=== PATIENT | male | born 1935 | race Asian ===

== ENCOUNTER 2021-04-01 11:24 | Inpatient (IN) | payer MEDICARE, OTHER, SELFPAY ==
[~2021-04-01] VITALS: Ht 167.6 cm; Wt 71.7 kg
[2021-04-01] MEDS: DEXT 5% /NACL 0.9% 1,000 ML IV SCH ×2 (01:51→16:42)
[~2021-04-01 11:24] MED LIST: ACET-2619 GT; ASCO500T95 GT; ATEN25TA7 GT; CALC-46 PO; DOCU-299 GT; FAMO-90 GT; FURO-572 GT; KEP500L GT; LACT1CAP94 GT; LEVO750T2 GT; LISI5TAB18 GT; POTA20SO16 GT; SCOP1PAT TD; SENN-46 PO; VANC1PDS14 IV; [UNRECOGNIZED DRUG - CODE] SUBQ
--- NOTE | 2021-04-01 11:25 | NUR ---
Patient BIBA ALS, transferred to bed 10. RN evaluating the patient at bedside.
--- NOTE | 2021-04-01 11:26 | NUR ---
85 Y/O MALE BIBA TRACHEA TO [facility] FROM [facility] FOR DESAT OF SPO2 92% ON 5L NC. GCS PER EMT UNKNOWN BASELINE FROM FACILITY. GCS 5 NOW. EMT PLACED PT ON BVM SP02 AT 98% WITH 5L. ON ARRIVAL RT AT BEDSIDE PLACED PT ON 5L TRACHEA 30% O2 VIA MECHANICAL VENTILATION. PT HAS GTUBE, DIAPERED. PMH: HTN, HLD, CHRONIC RESPIRATORY FAILURE, BPH. SEE OTHER NKA
[2021-04-01 11:30] VITALS: BP 64/34
--- NOTE | 2021-04-01 11:39 | NUR ---
Dr. Wallace is evaluating the patient at bedside.
--- NOTE | 2021-04-01 11:40 | NUR ---
PT SPO2 87% WITH 5L NC DESAT, RT AT BEDSIDE. O2 60% ON 12L TRACH.
[2021-04-01] MEDS ORDERED: AZITHROMYCIN 500 MG in DEXTROSE 5% 250 ML IV ONE (11:45)
[2021-04-01] MEDS ORDERED: NACL 0.9% 2,500 ML IV ONE (11:45)
[2021-04-01] MEDS ORDERED: CEFEPIME 1,000 MG in DEXTROSE 5% 50 ML IV ONE (11:45)
--- NOTE | 2021-04-01 11:47 | NUR ---
Note undone in EDM - 04/01/21 at 1212 by [email or web address] 85 Y/O MALE BIBA TRACHEA TO [facility] FROM [facility] FOR DESAT OF SPO2 92% ON 5L NC. GCS PER EMT UNKNOWN BASELINE FROM FACILITY. GCS 5 NOW. EMT PLACED PT ON BVM SP02 AT 98% WITH 5L. ON ARRIVAL RT AT BEDSIDE PLACED PT ON 5L TRACHEA 30% O2 VIA MECHANICAL VENTILATION. PT HAS GTUBE, DIAPERED. PMH: HTN, HLD, CHRONIC RESPIRATORY FAILURE, BPH. SEE OTHER NKA
--- NOTE | 2021-04-01 11:55 | NUR ---
LAB AT BEDSIDE FOR BLOOD DRAW
[2021-04-01] MEDS ORDERED: ZINC-31 GT (12:08)
[2021-04-01] MEDS ORDERED: MULT-1944 PO (12:08)
[2021-04-01] MEDS ORDERED: ASCO500T95 GT (12:08)
[2021-04-01] MEDS ORDERED: MERO500V13 IV (12:08)
[2021-04-01] MEDS ORDERED: OMEP20EC11 GT (12:08)
[2021-04-01] MEDS ORDERED: MULT-2253 GT (12:08)
--- NOTE | 2021-04-01 12:10 | NUR ---
instructional technologist at pt bedside.
[2021-04-01] MEDS ORDERED: CEFEPIME 1,000 MG VIAL ONE (12:15)
[2021-04-01 12:20] LABS: HEMATOCRIT 35.3 % (36-52); HEMOGLOBIN 10.8 g/dL (12.0-18.0); MEAN CORPUSCULAR HEMOGLOBIN 25 pg (27-31); MEAN CORPUSCULAR HGB CONC 30 g/dL (33-37); MEAN CORPUSCULAR VOLUME 82.7 fL (80-94); PLATELET COUNT (AUTO) 168 K/uL (140-450); RED BLOOD CELL COUNT(AUTO) 4.27 MIL/uL (4.20-6.10); RED CELL DISTRIBUTION WIDTH 16.5 % (11.6-13.7); WHITE BLOOD COUNT (AUTO) 24.3 K/uL (4.8-10.8)
[2021-04-01 12:33] LABS: PROTHROMBIN TIME 11.2 secs (10.8-13.4)
[2021-04-01] MEDS ORDERED: AZITHROMYCIN 500 MG INJ VIAL IV ONE (12:37)
[2021-04-01 12:40] LABS: MONOCYTES % (MANUAL) 5 % (5-12)
[2021-04-01 12:41] LABS: LYMPHOCYTES % (MANUAL) 7 % (20-46)
[2021-04-01 12:44] LABS: ALBUMIN 2.5 g/dL (3.4-5.0); ANION GAP 12.6 (8-16); ASPARTATE AMINOTRANSFERASE 36 U/L (15-37); CARBON DIOXIDE 32.4 mmol/L (21-32); CHLORIDE 116 mmol/L (98-107); CREATININE 3.5 mg/dL (0.6-1.3); GLUCOSE 205 mg/dL (74-106); LIPASE 562 U/L (73-393); TOTAL BILIRUBIN 0.3 mg/dL (0.0-1.0)
[2021-04-01 12:47] LABS: SODIUM SERUM 157 mmol/L (136-145); UREA NITROGEN, BLOOD 120 mg/dL (7-18)
[2021-04-01 13:05] LABS: APPEARANCE,URINE CLEAR (CLEAR); BILIRUBIN,URINE NEGATIVE (NEGATIVE); BLOOD, URINE TRACE-I (NEGATIVE); COLOR,URINE YELLOW (YELLOW); LEUKOCYTE ESTERASE ,URINE 1+ (NEGATIVE); NITRITE, URINE NEGATIVE (NEGATIVE); UGLUCOSE NEGATIVE (NEGATIVE)
[2021-04-01] MEDS ORDERED: LACTATED RINGERS 1,000 ML IV SCH (13:15)
[2021-04-01] MEDS ORDERED: LACTATED RINGERS 1,000 ML IV ONE (13:30)
[2021-04-01 13:32] LABS: RBC,URINE 0-5 /HPF (0-5); WBC,URINE 0-5 /HPF (0-5)
--- NOTE | 2021-04-01 13:38 | NUR ---
ABG WAS ATTEMPTED AT THIS TIME UNABLE TO OBTAIN DUE TO VERY LOW BP 68/37 WILL TRY AGAIN LATER
--- NOTE | 2021-04-01 13:41 | NUR ---
RT AT BEDSIDE FOR ABG
--- NOTE | 2021-04-01 14:13 | NUR ---
Spoke with Dr. Restrepo, per family only comfort measures. Pt is DNR.
--- NOTE | 2021-04-01 14:37 | NUR ---
Pt resting, visible equal rise and fall of chest, VSS, will continue to monitor.
--- NOTE | 2021-04-01 15:05 | NUR ---
RECEIVED REPORT FROM ER. PATIENT CC OF HYPOXIA, DX: SEPTIC SHOCK, RENAL FAILURE. PATIENT IS ON COMFORT MEASURES W/ DNR IN PLACE. LR BOLUS GIVEN FOR DECREASED BP. PENDING PATIENT TO TRANSFER TO UNIT.
--- NOTE | 2021-04-01 15:10 | NUR ---
Gave report to TIFFANY Garcia for pending admission. ETA 15 minutes. RT paged.
--- NOTE | 2021-04-01 15:29 | NUR ---
Patient will be admitted to care of Dr. Leonel Restrepo. Admited to tele. Will go to room 110-A. Belongings list completed. Report to TIFFANY Garcia.
[2021-04-01 15:30] VITALS: BP 87/51
--- NOTE | 2021-04-01 15:30 | NUR ---
PATIENT ARRIVED ON UNIT. RT AT BEDSIDE AND ASSISTED TRACH O2. ASSISTED SOFTWARE DESIGN MANAGER W/ SPONGE BATH AND CHANGED INTO CLEAN GOWN. PATIENT SMALL SMEAR BM, BLACK IN COLOR. SAFETY MEASURES IN PLACE. WILL CONTINUE TO MONITOR.
[2021-04-01] MEDS ORDERED: guaiFENesin DM 200/20 MG-10 ML 10 ML UDC PO PRN (16:00)
[2021-04-01] MEDS ORDERED: POTASSIUM CHLORIDE 40 MEQ, LIDOCAINE MPF 1% 25 MG in NACL 0.9% 250 ML IV PRN (16:00)
[2021-04-01] MEDS ORDERED: DOCUSATE SODIUM 100 MG GELCAP PO PRN (16:00)
[2021-04-01] MEDS ORDERED: ZOLPIDEM 5 MG TAB PO PRN (16:00)
[2021-04-01] MEDS ORDERED: ACETAMINOPHEN 325 MG TAB PO PRN (16:00)
[2021-04-01] MEDS ORDERED: ONDANSETRON 4 MG/2 ML VIAL IM/IVP PRN (16:00)
[2021-04-01] MEDS ORDERED: HYDROcodone/APAP 7.5/325 MG 1 TAB PO PRN (16:00)
--- NOTE | 2021-04-01 16:00 | NUR ---
ADMINISTERED PRESCRIBED MEDS PER MD ORDER. SUCTION PERFORMED. PATIENT TOLERATING WELL. WILL CONTINUE TO MONITOR.
[2021-04-01 16:50] LABS: CHOL/HDL RATIO 4.6 (1-4.5); FREE T4 (FREE THYROXINE) 0.86 ng/dL (0.76-1.46); MAGNESIUM 3.1 mg/dL (1.8-2.4); PHOSPHORUS 3.2 mg/dL (2.5-4.9); THYROID STIMULATING HORMONE 1.91 uIU/mL (0.34-3.74)
--- NOTE | 2021-04-01 17:00 | NUR ---
ADVSD DR JIN OF LACTIC ACID LEVEL. NO NEW ORDERS RECEIVED.
[2021-04-01] MEDS ORDERED: ALBUTEROL SULFATE/IPRATROPIU 3 ML SOL IH PRN (19:00)
[2021-04-01] MEDS: ALBUTEROL SULFATE/IPRATROPIU 3 ML SOL IH SCH (19:21)
--- NOTE | 2021-04-01 19:50 | NUR ---
ENDORSED PATIENT TO NIGHTSHIFT NURSE FOR CONTINUITY OF CARE
--- NOTE | 2021-04-01 19:50 | NUR ---
RECEIVED PT LETHARGIC , TRACH TO O2 AT 15LPM - ON HOOK TO O2 SAT MONITORING - O2 SAT WNL . ON TELE MONITOR . , BULGE IV - WILL RE INDERT - NEW IV ACCESS , LOW ERIC SCALE . WILL VERIFY TO DR. JIN ABOUT NGT ORDER - PT . IS W/ G TUBE . W/ FC DRAINING CLEAR U.O . SAFETY MEASURES IN PLACE . POC DISCUSSED BUT POOR UNDERSTANDING DUE TO MENTAL STATUS . WILL CONT. TO MONITOR .
[2021-04-01 20:00] VITALS: BP 90/60
--- NOTE | 2021-04-01 21:30 | NUR ---
START FEEDING TUBE - ORDERED BY DR. JIN . WILL ADVENCE THE REG PER TOLERANCE AND PER ORDERED .
--- NOTE | 2021-04-01 22:00 | NUR ---
TRIED TO INSERT NEW IV ACCESS - FAILED . - WILL ASK TO ICU FOR HELP .
[2021-04-02] VITALS: BP 102/60
--- NOTE | 2021-04-02 | NUR ---
O2 SAT WNL , ICU NURSE TRIED TO INSERT IV ACCESS - FAILED . ON TELE MONITOR . WILL CONT. TO MONITOR . WILL ASK MOI TO HELP ME - FOR IV ACCESS RE INSERTION .
[2021-04-02] MEDS: ALBUTEROL SULFATE/IPRATROPIU 3 ML SOL IH SCH ×4 (01:00→20:10)
--- NOTE | 2021-04-02 01:30 | NUR ---
MOI INSERT NEW IV ACCESS AT LEFT AC - PROCEDURES TOETARED WELL BY PT . MIN . BLEEDING . WILL CONT. THE IVF . WILL CONT. TO MONITOR
--- NOTE | 2021-04-02 02:00 | NUR ---
O2 SAT WNL NO S/SX OF ACUTE DISTRESS NOTED . ON TELE MONITOR .
[2021-04-02 04:00] VITALS: BP 113/62
--- NOTE | 2021-04-02 04:00 | NUR ---
O2 SAT WNL . NO S/X OF ACUTE DISTRESS NOTED . WILL CONT. TO MONITOR . BP WNL . Addendum: 04/02/21 at 0839 by Senia Mcgovern RN TUBE FEEDING TOLERATING WELL
--- NOTE | 2021-04-02 06:00 | NUR ---
IV SITE BULGED - WILL INFORM DR. JIN - PT HARD STICK
[2021-04-02 06:07] LABS: T4 (THYROXINE) 4.8 ug/dL (4.5-12.0)
[2021-04-02 06:09] LABS: BASOPHILS # (AUTO) 0.1 K/uL (0.00-0.22); BASOPHILS % (AUTO) 0.3 % (0.0-2.0); EOSINOPHILS # (AUTO) 0.1 K/uL (0-0.4); EOSINOPHILS % (AUTO) 0.7 % (0.0-4.0); HEMATOCRIT 32.1 % (36-52); HEMOGLOBIN 9.9 g/dL (12.0-18.0); LYMPHOCYTES # (AUTO) 1.4 K/uL (2.0-11.5); LYMPHOCYTES % (AUTO) 6.6 % (20.5-51.1); MEAN CORPUSCULAR HEMOGLOBIN 25 pg (27-31); MEAN CORPUSCULAR HGB CONC 31 g/dL (33-37); MONOCYTES # (AUTO) 0.9 K/uL (0.8-1.0); MONOCYTES % (AUTO) 4.3 % (1.7-9.3); NEUTROPHILS # (AUTO) 18.7 K/uL (1.8-7.7); NEUTROPHILS % (AUTO) 88.1 % (42.2-75.2); PLATELET COUNT (AUTO) 143 K/uL (140-450); RED BLOOD CELL COUNT(AUTO) 3.92 MIL/uL (4.20-6.10); RED CELL DISTRIBUTION WIDTH 15.8 % (11.6-13.7); WHITE BLOOD COUNT (AUTO) 21.2 K/uL (4.8-10.8)
[2021-04-02 06:11] LABS: ANION GAP 10.5 (8-16); CARBON DIOXIDE 30.8 mmol/L (21-32); CHLORIDE 119 mmol/L (98-107); CREATININE 2.2 mg/dL (0.6-1.3); GLUCOSE 191 mg/dL (74-106); POTASSIUM 3.3 mmol/L (3.5-5.1)
[2021-04-02 06:17] LABS: SODIUM SERUM 157 mmol/L (136-145); UREA NITROGEN, BLOOD 113 mg/dL (7-18)
[2021-04-02] MEDS: DEXT 5% /NACL 0.9% 1,000 ML IV SCH ×2 (06:50→17:21)
--- NOTE | 2021-04-02 07:35 | NUR ---
RECEIVED PATIENT FROM NIGHT NURSE. PATIENT IN BED SLEEPING. RESP EVEN AND UNLABORED ON TRACH TO 15L OXYGEN, O2SAT 95%. NO NOTED DISTRESS AT THIS TIME. NO IV ACCESS AT THIS TIME. WILL ASK ER NURSE FOR ASSIST. DROPLET PRECAUTION IN PLACE, PCR PENDING. HOB ELEVATED. SAFETY MEASURES IN PLACE. WILL CONTINUE TO MONITOR.
--- NOTE | 2021-04-02 07:35 | NUR ---
ENDORSED - PT - STABLE .
[2021-04-02 08:00] VITALS: BP 113/73
--- NOTE | 2021-04-02 08:37 | NUR ---
PER DR. DAVIN MUNGUIA EJ - C/O ER NURSE .
--- NOTE | 2021-04-02 08:56 | NUR ---
RECEIVED REFERRAL FOR TUBE FEEDING. PATIENT HAS BEEN SCREENED AND CATEGORIZED HIGH NUTRITION RISK. PATIENT WILL BE SEEN WITHIN 1-2 DAYS OF ADMISSION. 04/02/21-04/03/[address]
[2021-04-02] MEDS: PANTOPRAZOLE 40 MG INJ VIAL IVP SCH (09:00)
--- NOTE | 2021-04-02 10:04 | NUR ---
PATIENT IN BED SLEEPING, CHEST NOTED RISING. RESP EVEN AND UNLABORED ON TRACH TO 12L OXY, O2SAT 95%. LUNGS DIMINISHED. NO NOTED DISTRESS AT THIS TIME. PATIENT RESPONDING DURING TRACH SUCTION WITH EYE OPENING SPONTANEOUS. GTUBE IN PLACE WITH GLUCERNA 1.2, RESIDUAL CHECK <10ML, INCREASED FEEDING TO 40ML/HR ORDERED FOR GOAL. MORNING ROUTINE MEDICATION GIVEN. NO IV ACCESS AT THIS TIME. ER NURSE CALLED BUT NO NURSE AVAILABLE FOR EJ ACCESS INSERTION. PROTONIX IVP NOT GIVEN. SKIN COOL TO TOUCH. EDEMA NONPITTING NOTED TO UPPER BILATERAL EXTREMITIES AND LOWER LEFT FOOT. GEORGE NOTED IN PLACE DRAINING YELLOW URINE. DR JIN MADE AWARE OF POTASSIUM 3.3, NO NEW ORDERS GIVEN. PLAN OF CARE WILL BE COMFORT CARE. WILL AWAIT ORDERS. HOB ELEVATED, CALL LIGHT WITHIN REACH. WILL CONTINUE TO MONITOR.
--- NOTE | 2021-04-02 10:53 | NUR ---
DC PLANNIN YRS OLD FEMALE PATIENT WAS ADMITTED FROM [facility] WITH A DX OF SEPTIC SHOCK, PNEUMONIA. PT HAS A HX OF CVA ,CHRONIC RESP FAILURE ON TRACH AND PEG TUBE,AND SUBARACHNOID BLEED, ANEURYSM. PT IS DNR. CARDIO, PULMO AND NEPHRO CONSULTED CONDITION WORSEN , DR JIN SPOKE WITH FAMILY AND DECIDED PT TO BE ON MORPHINE DRIP. CM TO FOLLOW Addendum: 04/02/21 at 1113 by Yolie High RN DC PLANNING: FELIPE GARCIA [phone] SPOKE WITH ROBINSON CAMP DISCUSSED PT'S CONDITION AND UPDATED CLINICALS. PER ROBINSON IF PT IS ON MORPHINE DRIP [facility] WILL NOT TAKE PATIENT AND TO CONTINUE THE CARE., AND IF FAMILY AGREED WITH IN PATIENT HOSPICE JUST TO NOTIFY THEM. CM TO FOLLOW Addendum: 04/03/21 at 1447 by Yolie High RN DC PLANNING: FELIPE GARCIA SPOKE WITH CONRADO BOWERS NOTIFIED HER PT IS STILL IN HOUSE WITH MORPHINE DRIP. PT FAMILY REFUSED TO GO BACK TO [facility] WITH HOSPICE. PER ROBINSON STATED PT CAN BE GIP HOSPICE AND ONCE IT'S SIGNED WITH HOSPICE PERRY WON'T BE RESPONSIBLE. DISCUSSED WITH DR JIN AND FAXED THE IN PATIENT HOSPICE ORDER TO [facility] AND [facility]. CM TO FOLLOW Addendum: 04/03/21 at 1610 by Yolie High RN DC PLANNING: RECEIVED A CALL FROM [facility] SPOKE WITH FITZ STATED PT'S SON REFUSED TO SIGN THE IN PATIENT HOSPICE. CALLED [facility] ON HOLD FOR 1 HR UNABLE TO LEAVE MESSAGE. PT IS CONTINUE ON MORPHINE DRIP . CM TO FOLLOW
--- NOTE | 2021-04-02 10:59 | NUR ---
SPOKE TO DAUGHTER IRIS AND CONFIRMED PLAN OF CARE FOR PATIENT. PATIENT WILL START ON MORPHINE DRIP FOR COMFORT CARE. DAUGHTER VERBALIZED UNDERSTANDING. IV ACCESS INSERTED TO LEFT MIDDLE FINGER BY CHARGE NURSE. WILL CONTINUE TO MONITOR.
--- NOTE | 2021-04-02 11:44 | NUR ---
RECEIVED ORDER FROM DR JIN TO DISCONTINUE TUBE FEEDING AND DECREASE IVF RATE TO 60ML/HR. ORDERS CARRIED OUT.
[2021-04-02 12:00] VITALS: BP 94/62
--- NOTE | 2021-04-02 12:06 | NUR ---
SOCIAL WORK NOTE: Patient's Orientation Unable To Assess Information Provided By YANA Lugo [facility] [place] SW WAS UNABLE TO MEET PATIENT AT BEDSIDE. SW COMPLETED ASSESSMENT WITH PATIENT'S Roller Die Cutting Machine Operator, Realtionship and Phone Number DAVID NASH [phone] Healthcare Power of Wax Pourer No Does Patient Have a POLST No Identifying Problems No Social Work Triggers Is A Social Work Consult Needed No Mandate Report Filed No Explanation Of Identifying Problems PATIENT IS AM 85-YEAR-OLD MALE ADMITTED FOR SEPTIC SHOCK AND PNEUMONIA. PATIENT HAS PMHX OF CVA, CHRONIC RESPIRTORY FAILURE. [facility] - [phone] Pre-Admission Level Of Functioning Status Total Care Level Of Functioning Comment PATIENT IS BED BOUND. Prior Resources/Services Used In Last 12 Months No Prior Resources Used Prior DME No Prior DME Used Dialysis Comments N/A Living Situation Lives With Family House Patient Had Caregiver No Home Support No Caregiver Issues Financial Issues No Known Financial Issue Referral To The Financial Counselor Needed No Factors/Needs No D/C Needs Identified Pt/Rep Participated In Discharge Plan Yes Patient/Family Agress With Discharge Plan Yes Discharge Plan Comments TENTATIVE DISCHARGE PLAN IS FOR PATIENT TO RETURN [place] [facility] Plan Status Initiated
[2021-04-02] MEDS: MORPHINE SULFATE 50 MG in NACL 0.9% 45 ML IV PRN ×2 (12:50→21:10)
[2021-04-02] MEDS ORDERED: AZITHROMYCIN 500 MG in DEXTROSE 5% 250 ML IV SCH (13:00)
--- NOTE | 2021-04-02 13:06 | NUR ---
MORPHINE DRIP STARTED PER PROTOCOL. WILL CONTINUE TO FREQUENT MONITOR. Addendum: 04/02/21 at 1606 by Seb Ruano RN WOUND CARE PROVIDED. PATIENT OPEN EYES SPONTANEOUS. TOLERATED WELL. NO NOTED DISTRESS.
--- NOTE | 2021-04-02 15:03 | NUR ---
[facility] SERVICES NO LONGER NEEDED, PLEASE CONTACT RD IF THERE ARE ANY CHANGES IN STATUS
[2021-04-02 16:00] VITALS: BP 113/56
--- NOTE | 2021-04-02 16:05 | NUR ---
PATIENT IN BED SLEEPING, CHEST NOTED RISING. RESP EVEN AND UNLABORED ON TRACH TO 15L OXY, O2SAT 97%. NO NOTED DISTRESS. CONTINUE WITH MORPHINE DRIP. WILL CONTINUE TO MONITOR.
[2021-04-02] MEDS ORDERED: DEXT 5% / NACL 0.45% 1,000 ML IV SCH (16:20)
[2021-04-02] MEDS ORDERED: LEVOFLOXACIN 500 MG/D5W PREMIX 100 ML IV SCH (16:20)
--- NOTE | 2021-04-02 18:47 | NUR ---
PATIENT IN BED SLEEPING, AWAKEN TO STIMULI. RESP EVEN AND UNLABORED ON TRACH TO 15L OXY. NO NOTED DISTRESS. MORPHINE DRIP PROTOCOL IN PLACE. WILL CONTINUE TO MONITOR.
--- NOTE | 2021-04-02 19:19 | NUR ---
ENDORSED PATIENT TO NIGHT NURSE. PATIENT IN STABLE CONDITION.
[2021-04-02 20:00] VITALS: BP 94/52
--- NOTE | 2021-04-02 20:00 | NUR ---
PATIENT ASLEEP AT THIS TIME. SYMMETRICAL CHEST RISE AND FALL NOTED. SAFETY MEASURES IN PLACED. SATING 96% ON TRACH TO TBAR 12L O2.
--- NOTE | 2021-04-02 20:30 | NUR ---
RECEIVED BEDSIDE REPORT FROM DAY RN EARLIER REGARDING THE PT FOR CONTINUITY OF CARE. PATIENT IS OBTUNDED, RESPOND SOMETIMES TO LIGHT STIMULI AND TRIES TO OPEN HIS EYES. PT IS ON COMFORT MEASURES. ON MORPHINE DRIP @ 3ML/HR.SBP ON THE LOW 90'S, HR-77, AFEBRILE, SATING 96% ON TRACH TO T BAR 12L O2. SINUS RHYTHM ON MONKEY TRAINER, HR-72. HOB ELEVATED. SIDE RAILS UP X2, BED IN LOW POSITION AND BED ALARM ON.
--- NOTE | 2021-04-02 21:30 | NUR ---
SPOKE WITH THE PATIENT FAMILY EARLIER AND ASKED IF THEY CAN COME TO VISIT THE PATIENT AT THE BEDSIDE. COLLEGE ATHLETE TONY AND OFFICE MACHINE INSPECTOR CHERIE BOTH MADE AWARE AND OK'D IT. PER PATIENT FAMILY THEY'LL BE HERE BETWEEN 10PM TO 11PM.
--- NOTE | 2021-04-02 22:45 | NUR ---
Patient family at the bedside. Will continue to observe patient.
[2021-04-03] VITALS: BP 75/46
--- NOTE | 2021-04-03 | NUR ---
PT BLOOD PRESSURE WENT DOWN TO 75/46, HR-73, AFEBRILE, SATING 96% ON THE SAME TRACH TO T BAR SETTING. SR ON LENS GRINDING MACHINE OPERATOR, HR-73. WILL CONTINUE TO OBSERVE THE PT.
[2021-04-03] MEDS: ALBUTEROL SULFATE/IPRATROPIU 3 ML SOL IH SCH ×4 (01:06→19:03)
--- NOTE | 2021-04-03 02:00 | NUR ---
PT BPM 84/42, HR-102, SATING 98% ON TRACH TO TBAR SETTING. WILL CONTINUE COMFORT MEASURE ORDERED.
[2021-04-03 04:00] VITALS: BP 101/54
--- NOTE | 2021-04-03 04:10 | NUR ---
PATIENT VSS, AFEBRILE, SATING 94% ON 12L O2, TRACH TO T BAR. COMFORT CARE IN PLACED ORDERED. WILL CONTINUE TO OBSERVE.
[2021-04-03 06:35] LABS: BASOPHILS # (AUTO) 0.1 K/uL (0.00-0.22); BASOPHILS % (AUTO) 0.4 % (0.0-2.0); EOSINOPHILS # (AUTO) 0.3 K/uL (0-0.4); EOSINOPHILS % (AUTO) 1.3 % (0.0-4.0); HEMATOCRIT 34.2 % (36-52); HEMOGLOBIN 10.4 g/dL (12.0-18.0); LYMPHOCYTES % (AUTO) 10.3 % (20.5-51.1); MEAN CORPUSCULAR HEMOGLOBIN 26 pg (27-31); MEAN CORPUSCULAR HGB CONC 31 g/dL (33-37); MEAN CORPUSCULAR VOLUME 83.8 fL (80-94); MONOCYTES # (AUTO) 1.5 K/uL (0.8-1.0); MONOCYTES % (AUTO) 7.4 % (1.7-9.3); NEUTROPHILS # (AUTO) 15.8 K/uL (1.8-7.7); NEUTROPHILS % (AUTO) 80.6 % (42.2-75.2); PLATELET COUNT (AUTO) 150 K/uL (140-450); RED BLOOD CELL COUNT(AUTO) 4.08 MIL/uL (4.20-6.10); RED CELL DISTRIBUTION WIDTH 15.9 % (11.6-13.7); WHITE BLOOD COUNT (AUTO) 19.6 K/uL (4.8-10.8)
--- NOTE | 2021-04-03 06:51 | NUR ---
PATIENT STILL ON CONTINUOUS COMFORT MEASURES ORDERED. SATING 95% ON 12L TRACH TO T BAR. SBP ON HIGH 80'S. PATIENT ON MORPHINE DRIP ORDERED. WILL ENDORSE THE PATIENT TO THE ONCOMING RN FOR CONTINUITY OF CARE.
[2021-04-03 07:03] LABS: ANION GAP 11.9 (8-16); CARBON DIOXIDE 30.2 mmol/L (21-32); CHLORIDE 122 mmol/L (98-107); CREATININE 1.5 mg/dL (0.6-1.3); GLUCOSE 113 mg/dL (74-106)
--- NOTE | 2021-04-03 07:36 | NUR ---
PT RECEIVED FROM GLOVE PRINTER RN. PT RESTING IN BED EYES CLOSED NO S/S OF DISTRESS. IV IS DRY CLEAN AND INTACT. CALL LIGHT IS WITHIN REACH ALL SAFETY MEASURES ARE IN PLACE.
--- NOTE | 2021-04-03 07:37 | NUR ---
ENDORSED PATIENT TO DAY TIFFANY RODNEY FOR CONTINUITY OF CARE. SIGNING OFF.
[2021-04-03 08:00] VITALS: BP 84/55
[2021-04-03 08:23] LABS: POTASSIUM 5.1 mmol/L (3.5-5.1); SODIUM SERUM 159 mmol/L (136-145); UREA NITROGEN, BLOOD 99 mg/dL (7-18)
[2021-04-03] MEDS: PANTOPRAZOLE 40 MG INJ VIAL IVP SCH (09:00)
--- NOTE | 2021-04-03 09:26 | NUR ---
PATIENT STILL ON CONTINUOUS COMFORT MEASURES ORDERED. SATING 88% ON 12L TRACH TO T BAR. SBP IN THE 80'S. PATIENT ON MORPHINE DRIP ORDERED.
[2021-04-03] MEDS: DEXT 5% /NACL 0.9% 1,000 ML IV SCH (10:01)
--- NOTE | 2021-04-03 10:33 | NUR ---
PT TAKEN OFF TELE PER MD ORDERS. PT REPOSITIONED. AND KEPT DRY. NO S/S OF DISTRESS.
--- NOTE | 2021-04-03 11:36 | NUR ---
MORPHINE DROP 15 ML, PHARMACY AWARE 92% 02 ON 12L TRACH TO T BAR. ON CONTINUOUS COMFORT MEASURES ORDERED. SBP ON LOW 80'S. PATIENT ON MORPHINE DRIP ORDERED. ALL SAFETY MEASURES ARE IN PLACE.
--- NOTE | 2021-04-03 12:29 | NUR ---
PT REPOSITIONED, KEPT CLEAN DRY AND COMFORTABLE.
--- NOTE | 2021-04-03 13:30 | NUR ---
PT ASSESSED EVERY 15 MIN PER PROTOCOL. NO S/S OF DISTRESS AT THIS TIME. MORPHINE DRIP CONTINUES 90% O2
--- NOTE | 2021-04-03 13:32 | NUR ---
BP 77/42 SATING 99% ON 12L TRACH TO T BAR. SBP ON HIGH 80'S. PATIENT ON MORPHINE DRIP ORDERED.
--- NOTE | 2021-04-03 15:46 | NUR ---
PT IN BED RESTING COMFORTABLY EYES CLOSED. AROUSES TO PAINFUL STIMULUS. NO S/S OF DISTRESS AT THIS TIME.
[2021-04-03] MEDS: MORPHINE SULFATE 50 MG in NACL 0.9% 45 ML IV PRN (15:54)
--- NOTE | 2021-04-03 16:00 | NUR ---
MORPHINE DRIP CHANGED. DOUBLE VERIFICATION DONE AT BEDSIDE. PT IS RESTING COMFORTABLY NO S/S OF DISTRESS. VITAL SIGNS TAKEN, 76/44 90% 81P. PATIENT AROUSES TO PAIN.
--- NOTE | 2021-04-03 16:09 | NUR ---
PT REASSESSED BP89/45 O2% 99, PULSE 73RT AT BEDSIDE.
[2021-04-03 16:20] VITALS: BP 89/45
--- NOTE | 2021-04-03 16:30 | NUR ---
FAMILY CALLED AND UPDATED ON CARE OF PATIENT. FAMILY VERBALIZED UNDERSTANDING
--- NOTE | 2021-04-03 17:31 | NUR ---
PT REPOSITIONED CLEANED. BED BATH GIVEN , CATHETER CARE PROVIDED, ALL LINENS CHANGED, GOWN CHANGED. PT TOLERATED WELL. ALL SAFETY MEASURES ARE IN PLACE
--- NOTE | 2021-04-03 19:29 | NUR ---
PT ENDORSED TO OVERNIGHT CASHIER RN FOR CONTINUITY OF CARE. PT ON MORPHINE DRIP NO S/S OF DISTRESS.
--- NOTE | 2021-04-03 19:33 | NUR ---
RECEIVED REPORT FROM DAY RN RASHAUN. PT RESTING IN BED WITH EYES CLOSED. RESPIRATIONS EVEN UNLABORED ON TRACH TO TBAR O2 15L, O2 SAT 90%. IV SITE L MIDDLE FINGER 22G PATENT INTACT, INFUSING MORPHINE DRIP AT 6MG/HR. GEORGE CATH IN PLACE DRAINING DARK YELLOW URINE. SAFETY MEASURES IN PLACE. CALL LIGHT WITHIN REACH. WILL CONTINUE TO MONITOR
[2021-04-03 20:00] VITALS: BP 84/46
--- NOTE | 2021-04-03 22:18 | NUR ---
RECEIVED CALL FROM FAMILY. UPDATED ON PATIENT'S STATUS. WILL CONTINUE TO MONITOR PT
--- NOTE | 2021-04-04 00:05 | NUR ---
PT RESTING IN BED. EYES OPEN TO PAINFUL STIMULI. NO S/S OF ACUTE DISTRESS NOTED. WILL CONTINUE TO MONITOR
[2021-04-04] MEDS: ALBUTEROL SULFATE/IPRATROPIU 3 ML SOL IH SCH ×2 (01:16→07:45)
[2021-04-04] MEDS: MORPHINE SULFATE 50 MG in NACL 0.9% 45 ML IV PRN ×2 (02:16→12:06)
--- NOTE | 2021-04-04 02:21 | NUR ---
ADMINISTERED MORPHINE DRIP AT 6MG/HR WITH SECOND RN BRAILLE CODER. PATIENT RESTING IN BED COMFORTABLY, OPENS EYES TO VOICE AND PAINFUL STIMULI. NO SIGNS OF DISTRESS NOTED. WILL CONTINUE TO MONITOR
[2021-04-04] MEDS: DEXT 5% /NACL 0.9% 1,000 ML IV SCH (02:41)
[2021-04-04 04:00] VITALS: BP 70/41
--- NOTE | 2021-04-04 04:30 | NUR ---
PATIENT RESTING COMFORTABLY IN BED. MORPHINE DRIP ONGOING, INFUSING AT 6MG/HR. NO DISTRESS NOTED. WILL CONTINUE TO MONITOR
[2021-04-04 06:37] LABS: HEMOGLOBIN 9.3 g/dL (12.0-18.0)
[2021-04-04 06:40] LABS: HEMATOCRIT 31.2 % (36-52); MEAN CORPUSCULAR HEMOGLOBIN 26 pg (27-31); MEAN CORPUSCULAR HGB CONC 30 g/dL (33-37); MEAN CORPUSCULAR VOLUME 86.8 fL (80-94); PLATELET COUNT (AUTO) 193 K/uL (140-450); RED CELL DISTRIBUTION WIDTH 16.8 % (11.6-13.7)
[2021-04-04 07:31] LABS: ANION GAP 9.5 (8-16); CARBON DIOXIDE 36.9 mmol/L (21-32); CHLORIDE 122 mmol/L (98-107); CREATININE 2.5 mg/dL (0.6-1.3); GLUCOSE 174 mg/dL (74-106); POTASSIUM 5.4 mmol/L (3.5-5.1)
--- NOTE | 2021-04-04 07:39 | NUR ---
NURSE REPORT Report obtained from night nurse Quinton and this nurse assumed care of patient. Received patient not alert and HR was decreased. Tried to call patient , but able to call patient daughter. Spoked with daughter with use of this nurse cellphone and daughter agreed to FaceTime with her dad. The daughter was able to tell her dad "I love you!" Patient wasn't breathe much, but he took 4 deep breaths when daughter was speaking to him. BP 74/40, HR wasn;t showing on the automatic cuff. HR on the tele monitor would show 50-60. IV Morphine infusing at 6 mg/hr (6 ml/hr). No sxs of pain or discomfort. Trach with T bar and with O2. Estrada draining small amount of yellow urine.
--- NOTE | 2021-04-04 07:39 | NUR ---
ENDORSED PATIENT TO DAY RN FOR CONTINUITY OF CARE. PATIENT IS IN STABLE CONDITION
[2021-04-04 07:49] LABS: WHITE BLOOD COUNT (AUTO) 28.8 K/uL (4.8-10.8)
[2021-04-04 07:51] LABS: SODIUM SERUM 163 mmol/L (136-145); UREA NITROGEN, BLOOD 118 mg/dL (7-18)
[2021-04-04 08:13] LABS: LYMPHOCYTES % (MANUAL) 7 % (20-46); METAMYELOCYTES % 1 % (0-0); MONOCYTES % (MANUAL) 3 % (5-12)
[2021-04-04] MEDS ORDERED: SCOPOLAMINE 1.5 MG/72 HR PATCH TD SCH (09:00)
[2021-04-04] MEDS: PANTOPRAZOLE 40 MG INJ VIAL IVP SCH (10:19)
--- NOTE | 2021-04-04 10:26 | NUR ---
FAMILY DECIDED TO DISCONTINUE TREATMENT, COMFORT MEASURES ONLY. RD WILL REMAIN AVAILABLE FOR QUESTIONS/CONSULTS NEEDED NAOMI BAKER RD
[2021-04-04 12:06] VITALS: BP 46/26
--- NOTE | 2021-04-04 12:32 | NUR ---
EXPIRATION PATIENT PRONOUNCED AT 1232. IV DC'D. MORPHINE DC'D. ARIEL DC'D.
--- NOTE | 2021-04-04 12:35 | NUR ---
FAMILY NOTIFIED OF PATIENT . DAUGHTER WAS CALLED BY THIS NURSE.
--- NOTE | 2021-04-04 17:36 | NUR ---
CALL PLACE TO [facility] AGAIN, PER ANSWERING SERVICE , THEY WILL PAGE AND WILL CALL US BACK FOR THE ETA.
== END 2021-04-04 12:32 | DRG 871 ==
LOC: MED 11:24 → MTU 14:20
PROVIDERS: ADMIT Family Medicine; ATTEND Family Medicine
DX: A41.9 Sepsis, unspecified organism (principal); R65.21 Severe sepsis with septic shock; J69.0 Pneumonitis due to inhalation of food and vomit; N17.0 Acute kidney failure with tubular necrosis; J96.21 Acute and chronic respiratory failure with hypoxia; G93.41 Metabolic encephalopathy; I21.A1 Myocardial infarction type 2; J44.0 Chronic obstructive pulmonary disease with (acute) lower respiratory infection; E87.0 Hyperosmolality and hypernatremia; R40.3 Persistent vegetative state; Z99.11 Dependence on respirator [ventilator] status; Z66 Do not resuscitate; Z20.822 Contact with and (suspected) exposure to COVID-19; N40.0 Benign prostatic hyperplasia without lower urinary tract symptoms; E87.8 Other disorders of electrolyte and fluid balance, not elsewhere classified; E86.0 Dehydration; R73.9 Hyperglycemia, unspecified; D63.8 Anemia in other chronic diseases classified elsewhere; E87.6 Hypokalemia; E78.2 Mixed hyperlipidemia; I12.9 Hypertensive chronic kidney disease with stage 1 through stage 4 chronic kidney disease, or unspecified chronic kidney disease; N18.9 Chronic kidney disease, unspecified; I46.9 Cardiac arrest, cause unspecified; Z86.73 Personal history of transient ischemic attack (TIA), and cerebral infarction without residual deficits; Z93.1 Gastrostomy status; Z93.0 Tracheostomy status; Z88.0 Allergy status to penicillin; Z88.2 Allergy status to sulfonamides; Z88.8 Allergy status to other drugs, medicaments and biological substances
CPT/HCPCS: 36415; 51702; 71045; 80048; 80053; 81001; 82150; 83036; 83605; 83690; 83735; 83880; 84100; 84436; 84439; 84443; 84479; 84484; 85025; 85610; 85730; 87040; 87081; 87086; 87804; 93005; 94640; 96361; 96365; 96367; 99291; C9113; J0456; J0692; J0696; J1644; J2270; J7060; J7120; U0003